=== PATIENT | female | born 1995 ===

== ENCOUNTER 2017-01-17 20:37 | Emergency (ER) | payer OTHER ==
--- NOTE | 2017-01-17 23:14 | ED ORDER SUMMARY ---
..... Patient: JOHN MERA OrderSheet [facility] VisitID: [id number] [place] [address] 21y, F Registration Date/Time: 01/17/2017 ORDER SHEET Weight: 66.2 kg (stated) Allergies: No Known Drug Allergy GENERAL ORDERS: Lumbar Spine 2 or 3V Urgent (22:01/17/2017 Chantell JAVIER) (Ack 22:39 ALawrence ER Tech1) (22:46 MCampbell) Cervical Spine 2 or 3V Urgent (22:01/17/2017 Chantell JAVIER) (Ack 22:39 ALawrence ER Tech1) (22:46 MCampbell) MEDICATION ORDERS: IV FLUIDS: ORDER SHEET NOTES: [Electronically signed by Rayray Barros R.N. (23:29 01/17/2017)] [Electronically signed by Rodrigo Lloyd MD (21:42 01/18/2017)] [Electronically locked/signed by Rayray Barros R.N. (23:29 01/17/2017)]
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
--- NOTE | 2017-01-17 23:14 | ED ORDER SUMMARY ---
..... Patient: JOHN MERA OrderSheet [facility] VisitID: [id number] [place] [address] 21y, F Registration Date/Time: 01/17/2017 ORDER SHEET Weight: 66.2 kg (stated) Allergies: No Known Drug Allergy GENERAL ORDERS: Lumbar Spine 2 or 3V Urgent (22:01/17/2017 Chantell JAVIER) (Ack 22:39 ALawrence ER Tech1) (22:46 MCampbell) Cervical Spine 2 or 3V Urgent (22:01/17/2017 Chantell JAVIER) (Ack 22:39 ALawrence ER Tech1) (22:46 MCampbell) MEDICATION ORDERS: IV FLUIDS: ORDER SHEET NOTES: [Electronically signed by Rayray Barros R.N. (23:29 01/17/2017)] [Electronically signed by Rodrigo Lloyd MD (21:42 01/18/2017)] [Electronically locked/signed by Rayray Barros R.N. (23:29 01/17/2017)]
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
--- NOTE | 2017-01-18 21:42 | ED MED RECONCILIATION SUMMARY ---
Patient: JOHN MERA Medication Reconciliation Report [facility] VisitID: [id number] [place] [address] 21y, F Registration Date/Time: 01/17/2017 Weight: 66.2 kg Height/Length: 65 in. BMI: 24.3 ALLERGIES: No Known Drug Allergy The patient's Home Medications are listed below: NONE. The source(s) of the original Home Medication information: Not obtained. The following Medications were given to the patient in the Emergency Department: None. The following Medications were prescribed to the patient: Ibuprofen 600mg tablets: take 1 tablet orally every 8 hours as needed for pain. Dispense thirty (30). No refills. -- Rodrigo Lloyd MD Flexeril 5 mg: take 1 orally every 8 hours as needed for muscle spasm or pain. Dispense fifteen (15). No refills. Substitution is permissible. -- oRdrigo Lloyd MD
--- NOTE | 2017-01-18 21:42 | ED MAR SUMMARY ---
..... Medication Administration Record [facility] [address] [place], [place] [id number] Patient: JOHN MERA Visit ID: [id number] 21y, F Weight: 66.2 kg Height/Length: 65 in BMI: 24.3 ALLERGIES: No Known Drug Allergy
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
--- NOTE | 2017-01-18 21:42 | ED MED RECONCILIATION SUMMARY ---
Patient: JOHN MERA Medication Reconciliation Report [facility] VisitID: [id number] [place] [address] 21y, F Registration Date/Time: 01/17/2017 Weight: 66.2 kg Height/Length: 65 in. BMI: 24.3 ALLERGIES: No Known Drug Allergy The patient's Home Medications are listed below: NONE. The source(s) of the original Home Medication information: Not obtained. The following Medications were given to the patient in the Emergency Department: None. The following Medications were prescribed to the patient: Ibuprofen 600mg tablets: take 1 tablet orally every 8 hours as needed for pain. Dispense thirty (30). No refills. -- Rodrigo Lloyd MD Flexeril 5 mg: take 1 orally every 8 hours as needed for muscle spasm or pain. Dispense fifteen (15). No refills. Substitution is permissible. -- Rodrigo Lloyd MD
--- NOTE | 2017-01-18 21:42 | ED MAR SUMMARY ---
..... Medication Administration Record [facility] [address] [place], [place] [id number] Patient: JOHN MERA Visit ID: [id number] 21y, F Weight: 66.2 kg Height/Length: 65 in BMI: 24.3 ALLERGIES: No Known Drug Allergy
== END 2017-01-17 23:30 | disposition home or self-care (01) ==
LOC: ED SRH 20:37
DX: S16.1XXA Strain of muscle, fascia and tendon at neck level, initial encounter (principal); S39.012A Strain of muscle, fascia and tendon of lower back, initial encounter; V43.52XA Car driver injured in collision with other type car in traffic accident, initial encounter; Y93.89 Activity, other specified; Y92.410 Unspecified street and highway as the place of occurrence of the external cause; Y99.8 Other external cause status